=== PATIENT | male | born 1955 | race Caucasian/White ===

== ENCOUNTER 2016-07-31 10:41 | Emergency (ER) | payer OTHER ==
[2016-07-31 10:58] LABS: MANUAL DIFF NEEDED? NO
[2016-07-31 11:01] LABS: BASO% 0.4 % (0.0-0.8); HEMATOCRIT 42.3 % (42.0-52.0); HEMOGLOBIN 14.2 g/dL (14.0-18.0); IMM GRAN# 0.02 X1000 (0.0-0.04); IMM GRAN% 0.2 % (0.0-0.5); LYMPH# 1.41 X1000 (1.2-3.4); LYMPH% 16.7 % (20.5-51.1); MCHC 33.6 g/dL (33-37); MCV 95.3 FL (81-99); MONO# 1.46 X1000 (0.11-0.59); MONO% 17.3 % (1.7-9.3); MPV 8.8 FL (7.4-10.4); NEUT% 65.4 % (42.2-75.2); PLT 379 X1000 (130-400); RBC 4.44 XMIL (4.7-6.1)
[2016-07-31 11:24] LABS: ALBUMIN 4.4 g/dL (3.5-5.0); CALCIUM 9.1 mg/dL (8.8-10.2); POTASSIUM 3.4 mmol/L (3.5-5.1); TOTAL BILIRUBIN 0.42 mg/dL (0.20-1.00); TOTAL PROTEIN 8.5 g/dL (6.3-8.3)
[2016-07-31] MEDS ORDERED: PROTONIX IV ONE (13:26)
[2016-07-31] MEDS ORDERED: NS 500 ML IV ONE (13:26)
[2016-07-31] MEDS ORDERED: REGLAN IV ONE (13:26)
[2016-07-31] MEDS ORDERED: SODIUM CHLORIDE 0.9% INJ ONE ×2 (13:26→13:27)
--- NOTE | 2016-07-31 13:26 | PROVIDER DOCUMENTATION ---
HPI-Abdominal Pain/GI Problem - General Chief Complaint: N/V/D Stated Complaint: POSS DEHYDRATION Time Seen by Provider: 07/31/16 13:14 Source: patient, other (caregiver) Allergies/Adverse Reactions: Patient Allergies Allergy/AdvReac Type Severity Reaction Status Date / Time No Known Allergies Allergy Verified 07/31/16 14:13 Home Medications: ROSUVAstatin [Crestor] 10 mg PO QHS 04/15/14 Famotidine 20 mg PO DAILY 07/31/16 Lisinopril/Hydrochlorothiazide [Lisinopril-Hctz 20-12.5 mg Tab] 1 each PO DAILY 07/31/16 - History of Present Illness-ABD Nature of Presenting Problems: pt is a 61 y/o M that presents to the ER with n/v/d that began two to three days ago. Caregiver found him with diarrhea in bed. patient has no abdominal pain, fever/chills. Severity in ED: reports: moderate Onset/Duration: reports: gradual, 2 days ago, 3 days ago Timing: reports: still present, intermittent Activities at Onset: reports: none Modifying Factors: improves with: nothing Associated Symptoms: reports: diarrhea, nausea, vomiting, weakness. denies: chest pain, cough, diaphoresis, dizziness, EENT symptoms, fever/chills, genitourinary problems Similar Symptoms Previously?: No Recently seen or treated by another doctor?: No Review of Systems - Adult - REVIEW OF SYSTEMS - ADULT ROS:: ROS per family Constitutional: reports: vincenzoque. denies: chills, fever Eyes: reports: no symptoms reported Ears, Nose, Mouth & Throat: reports: no symptoms reported Cardiovascular: denies: chest pain, palpitations, syncope Respiratory: denies: cough, shortness of breath, wheezing Gastrointestinal: reports: diarrhea, nausea, vomiting. denies: abdominal pain, constipation, rectal bleeding Genitourinary: denies: dysuria, frequency, hematuria Musculoskeletal: reports: muscle weakness. 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: cognitive dysfunction (MR) - PRIOR SURGERIES/PROCEDURES Surgical/Procedure History: reports: none - IMMUNIZATION STATUS Childhood Immunizations: See Nurse Assessment Flu Vaccine: See Nurse Assessment - FAMILY HISTORY Family History: reviewed, not pertinent, diabetes - SOCIAL HISTORY Living Situation: alone Physical Exam-General - PHYSICAL EXAM-ADULT Initial Vital Signs Reviewed: Yes - CONSTITUTIONAL General Appearance: alert, no apparent distress - EYES Eyes: PERRL/EOMI, pink conjunctivae, fundi clear, no AV nicking - HEAD, EARS, NOSE, MOUTH & THROAT HENMT: normocephalic/atraumatic, moist mucous membranes, normal ENT inspection, pharynx normal - NECK Neck: non-tender, full range of motion, normal inspection - RESPIRATORY Respiratory: lungs clear, normal breath sounds, no respiratory distress, no accessory muscle use - CARDIOVASCULAR Cardiovascular: no gallop, no murmur, tachycardia - GASTROINTESTINAL (ABDOMEN) Abdominal Exam: normal bowel sounds, non tender, soft, no organomegaly, no pulsatile mass - MUSCULOSKELETAL Back Exam: no CVA tenderness, no vertebral tenderness Extremity: normal range of motion, non-tender, normal inspection, no pedal edema - SKIN Integumentary: normal color, warm/dry - NEUROLOGIC Neurologic: grossly normal, no motor/sensory deficits - PSYCHIATRIC Psych/Mental Status: normal mood/affect, normal thought content (t), normal thought process, oriented x 3 (to his normal baseline) Progress - PLAN OF CARE/RESULTS Progress/Plan/Lab Results: plan of care -labs Vital Signs Temp Pulse Resp BP Pulse Ox 07/31/16 10:44 97.9 F 118 H 16 118/78 100 No Known Allergies Allergy (Verified 07/31/16 14:13) ROSUVAstatin [Crestor] 10 mg PO QHS 04/15/14 Famotidine 20 mg PO DAILY 07/31/16 Lisinopril/Hydrochlorothiazide [Lisinopril-Hctz 20-12.5 mg Tab] 1 each PO DAILY 07/31/16 Dietary Diet NPO Start SunJul 31 1048 I&O 07/30/16 07/31/16 08/01/16 06:59 06:59 06:59 Output Total 30 Balance -30 Laboratory 07/31/16 07/31/16 07/31/16 13:25 10:32 10:32 WBC 8.45 RBC 4.44 L Hgb 14.2 Hct 42.3 MCV 95.3 MCH 32.0 H MCHC 33.6 RDW Std Deviation 14.4 Plt Count 379 MPV 8.8 Immature Gran % (Auto) 0.2 Neut % (Auto) 65.4 Lymph % (Auto) 16.7 L Simpson % (Auto) 17.3 H Eos % (Auto) 0.0 Baso % (Auto) 0.4 Immature Gran # (Auto) 0.02 Neut # (Auto) 5.53 Lymph # (Auto) 1.41 Simpson # (Auto) 1.46 H Eos # (Auto) 0.00 Baso # (Auto) 0.03 Sodium 135 L Potassium 3.4 L Chloride 94 L Carbon Dioxide 18 L Anion Gap 23 BUN 47 H Creatinine 1.9 H Estimated GFR/1.73 m2 36 BUN/Creatinine Ratio 25 Glucose 120 H Calculated Osmolality 284 Calcium 9.1 Total Bilirubin 0.42 AST 44 H ALT 23 Alkaline Phosphatase 53 Total Protein 8.5 H Albumin 4.4 Globulin 4.1 Albumin/Globulin Ratio 1.1 Amylase 92 Lipase 53 Urine Source CLEAN CATCH Urine Color YELLOW Urine Turbidity HAZY Urine pH 5.0 Ur Specific [place] 1.025 Urine Protein 30 A Ur Glucose (Stick) NEGATIVE Ur Ketones (Stick) NEGATIVE Urine Blood TRACE A Urine Nitrite NEGATIVE Urine Bilirubin NEGATIVE Urobilinogen Dipstick NORMAL Urine Leukocytes NEGATIVE Urine WBC (Auto) <10 Urine RBC (Auto) <10 U Epithel Cells (Auto) >10 A Urine Bacteria (Auto) 1+ Urine Crystals Not Reportable Small Round Cells Not Reportable Urine Casts Not Reportable Urine Yeast-like Cells NONE SEEN Orders Category Date Time Status Saline Loc DIRECTED Care 07/31/16 10:48 Active NPO Diet 07/31/16 10:48 Active AMYLASE [CHEM] Stat Lab 07/31/16 10:32 Completed CBC WITH ELECTRONIC DIFF [HEME] Stat Lab 07/31/16 10:32 Completed COMPREHENSIVE METABOLIC PANEL [CHEM] Stat Lab 07/31/16 10:32 Completed LIPASE [CHEM] Stat Lab 07/31/16 10:32 Completed URINALYSIS W/POSS RFLX CULT [URINALYSIS] Stat Lab 07/31/16 13:25 Completed URINE MANUAL MICROSCOPIC [URINALYSIS] Stat Lab 07/31/16 13:25 Completed 0.9% Sodium Chloride Inj [Ns] 500 ml Med 07/31/16 13:26 Discontinued IV 999 mls/hr Metoclopramide [Reglan] Med 07/31/16 13:26 Discontinued 5 mg IV NOW ONE Pantoprazole [Protonix] Med 07/31/16 13:26 Discontinued 40 mg IV NOW ONE Promethazine [Phenergan] Med 07/31/16 13:27 Discontinued 12.5 mg IV NOW ONE Sodium Chloride 0.9% Med 07/31/16 13:26 Discontinued 10 ml INJ NOW ONE Sodium Chloride 0.9% Med 07/31/16 13:27 Discontinued 10 ml INJ NOW ONE pt will be d/c home f/u with pcp, no rx, pt was clinically stable - REASSESSMENT Reassessment #1 Time Reassessed: 16:36 Status: improving Departure - Departure Time of Disposition Order: 16:36 DIAGNOSIS: Gastroenteritis Disposition: HOME 01 Certified Medical Emergency: Emergent Condition: Stable Additional Instructions: push fluids ED Follow Up Instructions: You have been treated by a care provider in the Emergency Department. These instructions are being provided to you so you can have an understanding of how to care for yourself upon discharge. Upon discharge from the Emergency Department, you are responsible for making arrangements for follow-up care by a physician of your choice. Take all prescribed medications as directed. Return to the Emergency Department immediately for any new or worsening symptoms. You may call the Physician Referral phone number at [phone] to obtain a list of Physicians who are taking new patients. Referrals: Lucio Fagan MD [Primary Care Provider] - Call for Appoint. 1-2days Instructions: Viral Gastroenteritis, [id number] Attestation - Scribe Verification/Attestation Scribe:: Terrance Unger Acting as Scribe for:: Daquan Manibdelia documention review:: This chart was documented by a scribe and accurately reflects the service the provider performed and the decisions made by the provider. Physician Attestation - Physician Attestation I, the provider, attest to the following statement:: Dqauan Soto Physician documentation Attestation:: This documentation recorded by the scribe accurately reflects the service I personally performed and the decisions made by me.
[2016-07-31] MEDS ORDERED: PHENERGAN IV ONE (13:27)
[2016-07-31 13:50] LABS: URINE CULTURE NEEDED? NO; URINE SOURCE CLEAN CATCH
[2016-07-31 13:56] LABS: BILIRUBIN URINE NEGATIVE (NEGATIVE); BLOOD URINE TRACE (NEGATIVE); COLOR YELLOW; GLUCOSE URINE NEGATIVE (NEGATIVE); LEUKOCYTES URINE NEGATIVE (NEGATIVE); NITRITE URINE NEGATIVE (NEGATIVE); PROTEIN URINE 30 mg/dL (NEGATIVE); SP GRAVITY URINE 1.025; TURBIDITY URINE HAZY (CLEAR); UROBILINOGEN URINE NORMAL (NORMAL)
[2016-07-31 14:00] LABS: URINE MICRO REVIEW NEEDED? YES
[2016-07-31 14:02] LABS: UR EPITHELIAL CELLS >10 /HPF (<10); URINE BACTERIA 1+ /HPF; URINE RBC <10 /HPF (<10); URINE WBC <10 /HPF (<10)
[2016-07-31 17:07] VITALS: BP 136/78
== END 2016-07-31 17:06 | disposition home or self-care (01) ==
LOC: ED 10:41
DX: K52.9 Noninfective gastroenteritis and colitis, unspecified (principal); R11.2 Nausea with vomiting, unspecified; R19.7 Diarrhea, unspecified; M62.81 Muscle weakness (generalized); R53.83 Other fatigue; I10 Essential (primary) hypertension; M19.90 Unspecified osteoarthritis, unspecified site; F79 Unspecified intellectual disabilities; Z79.899 Other long term (current) drug therapy; Z83.3 Family history of diabetes mellitus
CPT/HCPCS: 36415; 80053; 81001; 82150; 83690; 85025; 96374; C9113; J2550; J2765; J7040; S0164